=== PATIENT | female | born 1990 | race African-American/Black ===

== ENCOUNTER 2022-07-15 02:18 | Day surgery (SDC) | payer OTHER, SELFPAY ==
[2022-07-02 14:30] VITALS: BMI 33.7
--- NOTE | 2022-07-02 14:36 | PC.NURSE ---
Report to the Outpatient Waiting Room, entrance under the green pavilion located off [facility], at time _0930_ on date _[id number]_. Planned Procedure Time: _1130_. Time changes happen often and if your time is changed the preop area will call you the afternoon before. - You and your visitor will be asked to self-screen and do not enter if you have any COVID symptoms. - Only one visitor is requested with a max of two and NO children visitors are allowed at this time. - The patient visitor may be requested to leave or wait in car when not with patient due to distancing restrictions. - A mask is optional within the hospital. Patients may have clear liquids (water, carbonated beverages, clear teas, apple juice) until 3 hours prior to surgery with a maximum of 20 ounces. - No food from midnight until time of surgery Take the following medications with a SIP of water the morning of surgery: Medications to discontinue per physician Date to take last dose Please no make-up, nail sammarinese, hairspray, perfume, deodorant, or body powder the day of surgery. No jewelry (including any body piercings) or valuables the day of surgery, leave them at home. Please take a shower or bath the night before, or the morning of, surgery with an antibacterial soap. Wear comfortable, loose fitting clothing. - Jewelry must be removed prior to entering the operating room. Rings and piercings that are not removed may be cut off. - The hospital will not accept responsibility for valuables. - Please leave all valuables, including medications, at home the day of surgery. If you are going home after surgery, a licensed sulky driver must drive you home. - NO public transportation without another adult if you receive anesthesia. - We recommend that an adult stay with you for 24 hours following discharge. - We also recommend that you do not drive, make important decision, drink alcoholic beverages, or take any drugs that were not prescribed by your health care provider for at least 24 hours after your discharge time. Follow any additional instructions given to you from your surgeon. If you or anyone in your household have experienced Covid symptoms in the past week, please notify your surgeon or the nurse liaison at the phone number below for possible testing. Telephone instructions given to _Patient__and asked if any additional questions and then verbalized understanding. Patient advised to call surgeon office or pre surgery nurse liaison [phone] if any additional questions.
[2022-07-15] VITALS (9 sets, daily range): BP systolic 110–141; BP diastolic 60–90; PULSE 77–105; RESP 12–16; TEMP 36.1–36.6; O2SAT 96–100
--- NOTE | 2022-07-15 08:55 | W.PM.PROC2 ---
Procedure Note - Detailed Date of Procedure 07/15/22 Pre-op Diagnosis Localized adiposity Post-op Diagnosis Same Procedure Performed Suction lipectomy flanks / back Surgeon Barrett Aceves MD Anesthesia General Findings Lipoaspirate 3500 cc Description of Procedure Preoperatively the risks, benefits, alternatives were discussed in extensive detail. Want her to be very realistic about the risks involved as well as expectations. Made sure answered all of her questions to her satisfaction. She voiced a clear understanding. She understands limitations of the procedure. Consent obtained. Patient was taken to the operating room placed supine on the operating room table. Anesthesia was provided by anesthesiology and prepped and draped in a standard sterile fashion. Surgical time-out was taken. Flanks and back proceeded the same manner. I used an 11 blade to make stab incisions and infiltrated with a tumescent solution. Once adequate time for hemostasis suction lipectomy was completed based safe technique with a 5 mm basket cannula. This was in multiple planes and passes. This is based on preoperative planning, intraoperative observation, and rolling pinch test which was in full agreement. There was significant resistance with cannula passes in the areas (which had likely been treated in the past). Care was taken throughout to monitor cannula position. This was completed in bilateral lateral decubitus position as well as patient turned in the prone position for final contouring of the back. Care was taken during transfer to protect from injury. Port sites were closed with 4-0 nylon. Dressings were placed. Patient was woken taken to the PACU without difficulty. All instrument sponge counts were correct at the end of the case. Estimated Blood Loss 35 Drains No Packing No Pathology None sent Complications No immediate complications Condition Stable Disposition PACU
[2022-07-15] MEDS: LACTATED RINGERS 1,000 ML 30 ML IV CONT ×2 (09:15→15:39)
[2022-07-15 09:48] LABS: Urine Cotinine NEGATIVE
[2022-07-15] MEDS: SCOPOLAMINE 1.5 MG PATCH TRANSDERM (10:28)
--- NOTE | 2022-07-15 10:56 | P.PNAN_ITS ---
Anes - Initial Pre Proc Eval Procedure: Operation Date: 07/15/22 11:30 Proposed Procedures p Full Back Liposuction - Barrett Aceves MD Date/Time: 07/15/22 10:56 Surgeon: Barrett Aceves MD Pre Op Diagnosis: Localized adiposity Patient Data Age: 32 Gender: F Height: 1.7 m Weight: 101.4 kg Last Vital Signs Temp 36.6 C 07/15/22 09:15 Pulse 77 07/15/22 09:15 Resp 16 07/15/22 09:15 BP 136/90 07/15/22 09:15 Pulse Ox 100 07/15/22 09:15 O2 Del Method Room Air 07/15/22 09:15 Allergies Allergy/AdvReac Type Severity Reaction Status Date / Time No Known Allergies Allergy Verified 07/15/22 10:22 Home Medications Medication Instructions Recorded Confirmed Type No Home Medications 07/02/22 07/15/22 History Laboratory Tests 07/15/22 09:24 Cotinine Negative Patient hx anesthesia problems: none Family hx anesthesia problems: none Results Review: All pre-operative results and documents have been reviewed as part of the pre- operative evaluation. [facility] Past Medical History Medical History (Updated 07/15/22 @ 10:56 by Shawn Villa MD) Obesity Surgical History Surgical History (Updated 07/15/22 @ 10:56 by hSawn Villa MD) H/O Achilles tendon repair Social History Social History Smoking status: Never smoker Alcohol intake: current Drinks per week: 5 Living arrangements: with family Spiritual care concerns: No Anes - Eval Final PreProcedure Day of Procedure 07/15/22 10:56 Patient weight: obese Heart: regular rate and rhythm Lungs: clear to auscultation Airway: Mallampati scale class II Neurological: alert and oriented Last oral intake: >/= 8 hours ASA classification: II Emergent: no Anesthetic plan: proceed Anesthesia type and monitoring: general ETT and standard monitoring Results Review: All pre-operative results and documents have been reviewed as part of the pre- operative evaluation. Informed Consent: The patient's anesthetic plan and its attendant risks and benefits were discussed with the patient/family/POA. Questions were solicited and answers pr ovided to the satisfaction of the patient/family/POA.
--- NOTE | 2022-07-15 11:50 | WPDHPUPDATE1 ---
History and Physical Update Update Date/Time: 07/15/22 11:50 History and Physical has been reviewed, including an updated exam of the patient. There are NO changes in the patient's condition. Risks, benefits, and alternatives have been discussed and questions answered. Patient agrees to proceed with procedure.
[2022-07-15] MEDS: TRANEXAMIC ACID 1,000MG/ISO100 1,000 MG/100 ML BAG 200 MG IVPB (12:08)
[2022-07-15] MEDS: ceFAZolin 2 GM/D5W 50 ML 2 GM/50 ML BAG IVPB (12:37)
[2022-07-15] MEDS: LACTATED RINGERS IRRIG 1,000 ML, LIDOCAINE HCL 1% LOCAL INJ 50 ML, EPINEPHrine HCL INJ ... INFILTRATE ×3 (13:45→15:00)
[2022-07-15] MEDS: fentaNYL CITRATE INJ (*CRX) 100 MCG/2 ML VIAL 25 MCG IV PUSH ×4 (16:21→16:34)
== END 2022-07-15 17:41 | disposition home or self-care (01) ==
PROVIDERS: Visit Provider Surgery Plastic and Reconstructive Surgery
PROC: (CPT 15877; principal; 2022-07-15 11:30)
DX: Z41.1 Encounter for cosmetic surgery (principal); E65 Localized adiposity
CPT/HCPCS: 15877; 80307; A9270; J0171; J0330; J0690; J1100; J1170; J2250; J2405; J2704; J3010; J7120